=== PATIENT | male | born 1945 | race Caucasian/White ===

== ENCOUNTER → 2018-10-22 | Outpatient (CLI) | payer MEDICARE ==
[~2018-10-22] MED LIST: ALLO100T30 PO; AMIO200T42 PO; AMIO400T5 PO; AMIT25TA PO; APIX5TAB PO; COLC0.6T37 PO; INDO25CA5 PO; LORA-446 PO; LORA1TAB PO; METO25TA35 PO; METO25TA91 PO; METR500T PO; OXYC-302 PO; OXYC1TAB7 PO; SENN8.6T98 PO; TRAM50TA2 PO
== END | disposition home or self-care (01) ==
LOC: CFH 13:20
PROVIDERS: ATTEND Internal Medicine Cardiovascular Disease
DX: I25.10 Atherosclerotic heart disease of native coronary artery without angina pectoris (principal); R91.1 Solitary pulmonary nodule
CPT/HCPCS: 71250

== ENCOUNTER 2020-11-22 18:08 | Emergency (ER) | payer MEDICARE ==
[~2020-11-22] VITALS: Ht 188 cm; Wt 131.4 kg
[~2020-11-22 18:08] MED LIST changes: +INDO25CA22 PO; -INDO25CA5 PO; -OXYC-302 PO; +OXYC1TAB14 PO
--- NOTE | 2020-11-22 18:33 | NUR ---
NASAL CLAMP PROVIDED TO PT. PT ALSO USING GAUZE/PAPER TOWELS TO CONTROL BLEEDING.
--- NOTE | 2020-11-22 18:39 | NUR ---
ERP WAS IN TO SEE PT.
--- NOTE | 2020-11-22 19:07 | NUR ---
PT BELIEVES BLEEDING STOPPED. NOSE CLAMP REMAINS IN PLACE. CHART UP FOR RECHECK.
[2020-11-22 19:11] VITALS: BP 149/111
[2020-11-22] MEDS ORDERED: SILVER NITRATE STICK TP ONE (19:19)
--- NOTE | 2020-11-22 19:25 | NUR ---
ERP AT BS. Addendum: 11/22/20 at 1949 by HBENSON ERP CAUTERIZING BLEED.
--- NOTE | 2020-11-22 19:49 | NUR ---
ERP AT FOR RECHECK.
--- NOTE | 2020-11-22 20:02 | NUR ---
D/C INSTRUCTIONS & F/U APPT RV'WD WITH PT, HE VERBALIZES UNDERSTANDING. AMBULATED OUT OF ED WITH WITHOUT DIFFICULTY.
== END 2020-11-22 20:03 | disposition home or self-care (01) ==
LOC: ED 19:18
DX: R04.0 Epistaxis (principal); I48.91 Unspecified atrial fibrillation; Z90.89 Acquired absence of other organs
CPT/HCPCS: 30901; 99284